=== PATIENT | female | born 1965 | race Caucasian/White ===

== ENCOUNTER 2022-01-02 06:49 | Outpatient (CLI) | payer BC, SELFPAY ==
--- NOTE | 2022-01-02 07:15 | MR_ITS ---
WS: [id number] MRI BRAIN WITHOUT CONTRAST HISTORY: G40.909 - Epilepsy, unspecified, not intractable, without aura. COMPARISON: None available. TECHNIQUE: Diffusion imaging, multiplanar T1, T2 and FLAIR imaging obtained. High-resolution imaging through the temporal lobes. No evidence for acute infarct or hemorrhage. King-white matter differentiation is normal. There are v charo few subcortical T2 and FLAIR signal hyperintensities in the frontal lobes. No prior infarct. No e sera or hemorrhage. High-resolution imaging through the temporal lobes is negative for hippocampal asymmetries or atrophy . No remote or acute infarcts are volume loss. Ventricles and extra-axial spaces are normal. No inferior displacement of cerebellar tonsils. The sella turcica and pituitary gland are unremarkabl e. Dural venous sinuses and [place] demonstrate no abnormality on this unenhanced studies. Paranasal sinuses: Mucoperiosteal thickening moderate LEFT maxillary sinus. Moderate-sized mucous ret ention cyst in the RIGHT maxillary sinus with mucoperiosteal thickening. There is a small amount muco periosteal thickening throughout the frontal and ethmoid sinuses. Mastoid air cells: Normal. Calvarium and scalp: Intact. MR/MR head wo con* [id number] IMPRESSION: 1. No acute infarct. No prior hemorrhage. 2. Hippocampal formations are symmetric and normal. 3. Mild mucoperiosteal thickening in the frontal, ethmoid and maxillary sinuse s with a RIGHT maxillary mucous retention cyst. 4. No prior infarct.
== END 2022-01-02 06:50 | disposition home or self-care (01) ==
LOC: RAD 06:50
PROVIDERS: PCP Family Medicine; Visit Provider Specialist
DX: G40.909 Epilepsy, unspecified, not intractable, without status epilepticus (principal)
CPT/HCPCS: 70551